=== PATIENT | female | born 1990 | race African-American/Black ===

== ENCOUNTER 2018-11-19 07:25 | Emergency (ER) | payer SELFPAY ==
[~2018-11-19] VITALS: Ht 157.5 cm; Wt 72.9 kg
[2018-11-19 07:29] VITALS: BP 149/66; PULSE 74; RESP 16; Ht 157.5 cm; Wt 72.9 kg
[2018-11-19] MEDS ORDERED: ONDANSETRON (ODT) 4 MG TAB ODT STA (07:38)
[2018-11-19] MEDS ORDERED: NAPR-985 PO (07:40)
[2018-11-19] MEDS ORDERED: AMOX1TAB10 PO (07:40)
[2018-11-19] MEDS ORDERED: HYDR-4011 PO (07:40)
--- NOTE | 2018-11-19 07:49 | ERD ---
ER Documentation Chief Complaint Chief Complaint dental pain on L upper and bottom HPI 28-year-old female presenting with dental pain to the upper and lower left jaw space. She states is been going for the last 2 days. Has not been able see a dentist for her pain. Took Aleve earlier today with no alleviation. She has not driven here. Denies any fevers. Denies any trouble swallowing or breathing. Denies medical problems. NKDA. Surgical history denies. Social history smokes marijuana occasionally. Denies other drug use ROS All systems reviewed and are negative except as per history of present illness. Medications Home Meds Active Scripts Naproxen* (Naprosyn*) 500 Mg Tablet, 500 MG PO BID PRN for PAIN AND/OR INFLAMMATION, #30 TAB Prov:GHISLAINE HERNANDEZ PA-C 11/19/18 Hydrocodone/Acetaminophen ([place] 5-325 Tablet) 1 Each Tablet, 1 TAB PO Q6H PRN for PAIN, #7 TAB Prov:GHISLAINE HERNANDEZ PA-C 11/19/18 Amoxicillin/Potassium Clav (Amox-Clav 875-125 mg Tablet) 875-125 mg Tab, 1 TAB PO BID for 7 Days, #14 TAB Prov:GHISLAINE HERNANDEZ PA-C 11/19/18 Allergies Allergies: Coded Allergies: No Known Allergy (Unverified , 11/19/18) FmHx Family History: No diabetes, No coronary disease, No other Physical Exam Vitals Vital Signs Date Temp Pulse Resp B/P (MAP) Pulse Ox O2 O2 Flow FiO2 Time Delivery Rate 11/19/18 98.3 74 16 149/66 100 07:29 (93) Physical Exam GENERAL: The patient is well-appearing, well-nourished, in no acute distress HEENT: Atraumatic. Conjunctivae are pink. Pupils equal, round, and reactive to light. There is no scleral icterus. Tympanic membranes clear bilaterally. Oropharynx clear. Poor dentition noted to the upper and lower left jaw space. No facial swelling. NECK: C-spine is soft and supple. There is no meningismus. There is no cervical lymphadenopathy. CHEST: Clear to auscultation bilaterally. There are no rales, wheezes or rhonchi. HEART: Regular rate and rhythm. No murmurs, clicks, rubs or gallops. Results 24 hrs Current Medications Medications Dose Sig/Jesusita Start Time Status Last (Trade) Ordered Route PRN Stop Time Admin Dose Reason Admin 1 tab ONCE ONCE 11/19/18 Acetaminophen PO 08:00 11/19/18 / 08:01 Hydrocodone Bitart ([place] (5/325)) Ondansetron 4 mg ONCE STAT 11/19/18 DC HCl (Zofran ODT 07:38 11/19/18 Odt) 07:40 Procedures/MDM ER course: [place] and Zofran given ED. MDM: 28-year-old female presenting with dental pain. Patient has findings consistent with broken tooth and I have low suspicion for deep tracking abscess. Patient will be discharged with pain medication and antibiotics. Patient is told if symptoms change or worsen to return immediately to the ER. All questions answered at discharge Departure Diagnosis: Primary Impression: Tooth disease Condition: Stable Patient Instructions: Tooth Abscess Referrals: [facility] YOU HAVE RECEIVED A MEDICAL SCREENING EXAM AND THE RESULTS INDICATE THAT YOU DO NOT HAVE A CONDITION THAT REQUIRES URGENT TREATMENT IN THE EMERGENCY DEPARTMENT. FURTHER EVALUATION AND TREATMENT OF YOUR CONDITION CAN WAIT UNTIL YOU ARE SEEN IN YOUR DOCTORS OFFICE WITHIN THE NEXT 1-2 DAYS. IT IS YOUR RESPONSIBILITY TO MAKE AN APPOINTMENT FOR FOLOW-UP CARE. IF YOU HAVE A PRIMARY DOCTOR --you should call your primary doctor and schedule an appointment IF YOU DO NOT HAVE A PRIMARY DOCTOR YOU CAN CALL OUR PHYSICIAN REFERRAL HOTLINE AT IF YOU CAN NOT AFFORD TO SEE A PHYSICIAN YOU CAN CHOSE FROM THE FOLLOWING [facility] [id number] [facility] [facility] [address] [facility] [facility] [address] [facility] [facility] [address] [facility]. [facility] [address] [facility]. [facility]. [address] Additional Instructions: FOLLOW UP WITH YOUR PRIMARY CARE PHYSICIAN TOMORROW.Return to this facility if you are not improving as expected. GHISLAINE HERNANDEZC Nov 19, 2018 07:49
[2018-11-19] MEDS ORDERED: HYDROCODONE/APAP (5/325) TAB PO ONE (08:00)
== END 2018-11-19 07:51 | disposition home or self-care (01) ==
LOC: FTE 07:25
DX: K08.89 Other specified disorders of teeth and supporting structures (principal)
CPT/HCPCS: 99283